=== PATIENT | female | born 1965 | race Caucasian/White ===

== ENCOUNTER 2017-02-19 09:42 | Inpatient (IN) | payer OTHER ==
[~2017-02-19] VITALS: Ht 170.2 cm; Wt 57.1 kg
--- NOTE | ~2017-02-19 | EKG ---
[address] [address] ELECTROCARDIOGRAM REPORT Name: DAREN CHRISTENSEN Room #: 447-P ADM IN M.R.#: [id number] Admission: 02/19/17 Attend Phys: Stephan Alvarado MD Discharge: Date of : 63 Report #: [id number] THIS REPORT FOR: //name// [facility] ED Test Date: 2017-02-19 Test Time: 10:13:24 Pat Name: DAREN CHRISTENSEN Department: Room: [facility] Gender: F Photovoltaic Technician: Triny WELSH : 1965 Requested By: Manohar Brown Order Number: [id number] MD: Armand Toro Measurements Intervals [place] Rate: 100 P: 81 [place]: 122 QRS: 57 QRSD: 91 T: QT: 439 QTc: 567 Interpretive Statements Sinus tachycardia Biatrial enlargement RSR' in V1 or V2, probably normal variant Borderline T wave abnormalities Electronically Signed On 02-19-2017 17:28:11 ASSISTANT PRESS OPERATOR OFFSET by Armand Toro [email or web address] <ELECTRONICALLY SIGNED> By: Armand Toro MD 02/19/17 1728 1013 1013 Armand Toro MD /DAVON
--- NOTE | ~2017-02-19 | EKG ---
[address] [address] ELECTROCARDIOGRAM REPORT Name: DAREN CHRISTENSEN Room #: 447-P ADM IN M.R.#: [id number] Admission: 02/19/17 Attend Phys: Stephan Alvarado MD Discharge: Date of : 63 Report #: [id number] THIS REPORT FOR: //name// [facility] Test Date: 2017-02-20 Test Time: 15:50:54 Pat Name: DAREN CHRISTENSEN Department: Room: 447 Gender: F Casing Mixer: allison : 1965 Requested By: Armand Toro Order Number: [id number] MD: Armand Toro Measurements Intervals [employer] Rate: 71 P: 58 [place]: 111 QRS: 56 QRSD: 109 T: QT: 494 QTc: 537 Interpretive Statements Sinus rhythm Borderline short CA interval Nonspecific T abnrm, anterolateral leads Electronically Signed On 02-20-2017 16:00:55 EXECUTIVE STAFF ASSISTANT by Armand Toro [email or web address] <ELECTRONICALLY SIGNED> By: Armand Toro MD 02/20/17 1600 155 Armand Toro MD /DAVON
--- NOTE | ~2017-02-19 | HC ---
[facility] [place] [address] CONSULTATION Name: DAREN CHRISTENSEN Room #: 447-P ADM IN M.R.#: [id number] Admission: 02/19/17 Attend Phys: Stephan Alvarado MD Discharge: Date of : 63 Report #: [id number] THIS REPORT FOR: //name// CC: Lucho Alvarado DATE OF SERVICE: 02/20/2017 CARDIOLOGY CONSULTATION REASON FOR CONSULTATION: History of congestive heart failure and shortness of breath. HISTORY OF PRESENT ILLNESS: The patient is a 52-year-old female diagnosed with lung cancer back in 2011. At that time, she underwent surgical resection. There was no evidence of metastasis. She did undergo radiation therapy as well as chemotherapy with cisplatin and another noncardiotoxic agent. 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 In December, she was staying at a hotel after returning from a recent nursing job out of town and she became apparently nonresponsive and went to [facility] where she had an abnormal EKG and was taken to the catheterization lab and her coronary arteries apparently were within normal limits and was diagnosed with a Takotsubo cardiomyopathy. Her EF was about 20% and she was in the ICU for approximately 1 week with severe low blood pressures in the 80s. This slowly improved and she was eventually discharged on no medications due to her hypotension, but did have a LifeVest placed. She has not yet seen a bulb sorter as an outpatient and follows with Dr. Taylor as her primary. She reports that she came in yesterday with increased fevers and chills, productive cough and worsening shortness of breath. She says she has multiple family members who are ill with some sort of a virus. She denies any chest pain or chest tightness. She denies PND or orthopnea. She denies presyncope or syncope. PAST MEDICAL HISTORY: As above. SOCIAL HISTORY: No longer smokes, is a nurse. FAMILY HISTORY: Noncontributory. ALLERGIES: None. MEDICATIONS: Currently on nebulizers and IV antibiotics, but nothing for her blood pressure. REVIEW OF SYSTEMS: GENERAL: The patient has been having some fevers. [facility] [address] [place] [address] CONSULTATION Name: DAREN CHRISTENSEN Room #: 447-P [facility] IN [facility].#: [id number] Admission: 02/19/17 Attend Phys: Stephan Alvarado MD Discharge: Date of : 63 Report #: [id number] HEENT: No blurred vision. CARDIOVASCULAR: As above. PULMONARY: She is having some productive cough and some increased wheezing. GASTROINTESTINAL: She denies nausea, vomiting. GENITOURINARY: She denies dysuria. MUSCULOSKELETAL: No myalgias or arthralgias. ENDOCRINE: No heat or cold intolerance. PHYSICAL EXAMINATION: VITAL SIGNS: Temperature is 36.7, pulse 60, respirations 17, blood pressure 121/66, sats are 95%. GENERAL: She is in no acute distress. HEENT: Oropharynx is clear. NECK: Supple, with no thyromegaly. HEART: Regular rate and rhythm with no murmurs, rubs or gallops. She has no elevated jugular venous pressure. LUNGS: Reveal decreased rhonchi and wheezing. ABDOMEN: Soft, nontender, nondistended with no hepatosplenomegaly. EXTREMITIES: No clubbing, cyanosis, edema. NEUROLOGIC: Cranial nerves 2-12 are intact. LABORATORY DATA: White count 10, hemoglobin 12, platelets 169. Sodium 138, potassium 3.4, BUN 14, creatinine 1. Her proBNP is completely normal at 235. Her troponin is normal. Her chest x-ray shows normal cardiac size. There is no evidence of pulmonary edema. She has a right-sided port. Her CT scan of chest was within normal limits with no PE. ASSESSMENT: 1. Takotsubo cardiomyopathy. 2. Nonischemic cardiomyopathy. 3. Pneumonia. 4. Shortness of breath secondary to pneumonia. In summary, the patient is a 52-year-old with recent diagnosis of Takotsubo cardiomyopathy, ejection fraction of 20%, currently wearing a LifeVest. I do not believe her shortness of breath is due to congestive heart failure. She appears to be clinically euvolemic. I think she likely has pneumonia, which needs to be optimized. We will obtain an echocardiogram to evaluate her left ventricular size and function. If her ejection fraction is greater than 35%, we can discuss discontinuation of the LifeVest. I can also see her as an outpatient. <ELECTRONICALLY SIGNED> By: Armand Toro MD 02/21/17 1307 1432 0257 Armand Toro MD /nt
--- NOTE | ~2017-02-19 | 2DMMODE ---
[facility] [address] [place] [address] 2 D/M-MODE ECHOCARDIOGRAM Name: DAREN CHRISTENSEN Simon Room #: 447-P [facility] IN ..#: [id number] Admission: 02/19/17 Attend Phys: Stephan Alvarado, Discharge: Date of : 63 Date of Service: 02/21/17 1310 Report #: [id number] THIS REPORT FOR: //name// APPROVED REPORT Study performed: 02/21/2017 10:38:33 EXAM: Comprehensive 2D, Doppler, and color-flow Echocardiogram Patient Location: Bedside Room #: [facility] Status: routine BSA: 1.66 BP: 144/67 mmHg Other Information Study Quality: Adequate Indications Dyspnea Hx Takotsubo cardiomyopathy, previous EF=20% 2D Dimensions RVDd: 30.67 mm LVEF(%): 68.30 (>50%) IVSd: 8.05 (7-11mm) LVOT Diam: 16.41 (18-24mm) LVDd: 45.18 mm PWd: 9.68 (7-11mm) Ascending Ao: 24.63 (22-36mm) LVDs: 28.01 (25-40mm) Aortic Root: 30.51 mm IVC: 23.00 mm Dodd's LVEF: 68.30 % Volumes Left Atrial Volume (Systole) Single Plane 4CH: 45.65 mL Single Plane 2CH: 33.51 mL LA ESV Index: 26.00 mL/m2 Aortic Valve AoV Peak Alfa.: 1.47 m/s AO Peak Gr.: 8.63 mmHg LVOT Max P.24 mmHg LVOT Max V: 1.44 m/s JHON Vmax: 2.07 cm2 Mitral Valve E/A Ratio: 1.5 MV Decel. Time: 170.50 ms [facility] [employer] [place] [address] 2 D/M-MODE ECHOCARDIOGRAM Name: DAREN CHRISTENSEN Simon Room #: 447-P [facility] IN .R.#: [id number] Admission: 02/19/17 Attend Phys: Stephan Alvarado, Discharge: Date of : 63 Date of Service: 02/21/17 1310 Report #: [id number] E Max Alfa.: 1.23 m/s MV A Alfa.: 0.84 m/s MV PHT: 49.45 ms IVRT: 55.36 ms Pulmonary Valve PV Peak Alfa.: 0.90 m/s PV Peak Gr.: 3.27 mmHg Pulmonary Vein P Vein S: 0.55 m/s P Vein A: 0.25 m/s P Vein D: 0.68 m/s P Vein A Dur.: 107.3 msec P Vein S/D Ratio: 0.81 Tricuspid Valve TR Peak Alfa.: 3.14 m/s RAP Estimate: 15.00 mmHg TR Peak Gr.: 39.45 mmHg PA Pressure: 55.00 mmHg Left Ventricle The left ventricle is normal size. There is normal LV segmental wall motion. There is normal left ventricular wall thickness. The left ventricular systolic function is normal. The left ventricular ejection fraction is within the normal range. LVEF is 55-60%. The left ventricular diastolic function is normal. Right Ventricle The right ventricle is normal size. The right ventricular systolic function is normal. Atria The left atrium size is normal. The right atrium size is normal. Aortic Valve The aortic valve is normal in structure. No aortic regurgitation is present. There is no aortic valvular stenosis. Mitral Valve The mitral valve is normal in structure. Trace mitral regurgitation. No evidence of mitral valve stenosis. Tricuspid Valve The tricuspid valve is normal in structure. Mild tricuspid regurgitation. PAP is estimated at 55 mmHg. Pulmonic Valve [address] [address] 2 D/M-MODE ECHOCARDIOGRAM Name: DAREN CHRISTENSEN Room #: 447-P [facility] IN [facility]#: [id number] Admission: 02/19/17 Attend Phys: Stephan Alvarado, Discharge: Date of : 63 Date of Service: 02/21/17 1310 Report #: [id number] The pulmonary valve is normal in structure. Trace pulmonic regurgitation. Great Vessels The aortic root is normal in size. IVC is dilated and collapses <50% with inspiration. Pericardium There is no pericardial effusion. <Conclusion> The left ventricular systolic function is normal. There is normal LV segmental wall motion. LVEF is 55-60%. The aortic valve is normal in structure. No aortic regurgitation or stenosis The mitral valve is normal in structure. Trace mitral regurgitation. Mild tricuspid regurgitation. Pulmonary artery pressure estimated at 55 mmHg. There is no pericardial effusion. <ELECTRONICALLY SIGNED> By: Homero Quintero MD, FACC 02/21/17 1310 1310 09 Homero Quintero MD, FACC /INF
[2017-02-19 09:46] VITALS: BP 119/91
[2017-02-19 10:49] LABS: ABSOLUTE NEUTROPHILS 8.5 thou/uL (1.4-8.2); BASOPHILS 0.5 % (0.0-2.0); HEMATOCRIT 36.4 % (37.0-47.0); HEMOGLOBIN 12.4 gm/dL (12.0-15.0); LYMPHOCYTES 8.8 % (24.0-44.0); MCH 31.5 pg (26.0-34.0); MCHC 34.1 g/dL (28.0-37.0); MCV 92.4 fL (80.0-100.0); MONOCYTES 11.4 % (1.0-8.0); PLATELET COUNT 169 thou/uL (150-400); POLYS 78.3 % (36.0-66.0); RBC 3.94 mil/uL (4.20-5.00); RDW 13.2 % (10.5-14.5); WBC 10.9 thou/uL (4.0-11.0)
[2017-02-19 11:00] LABS: ANION GAP 16 mmol/L (7-16); BUN 14 mg/dL (7-18); CALCIUM 9.3 mg/dL (8.5-10.1); CHLORIDE 100 mmol/L (98-107); CO2 22 mmol/L (21-32); GLUCOSE 83 mg/dL (74-106); POTASSIUM 3.4 mmol/L (3.5-5.1); SODIUM 138 mmol/L (136-145)
[2017-02-19 11:09] LABS: ALBUMIN 3.3 g/dL (3.4-5.0); SGOT 17 U/L (15-37); SGPT 14 U/L (30-65); TOTAL BILIRUBIN 0.5 mg/dL (<0.1-1.0); TOTAL PROTEIN 7.5 g/dL (6.4-8.2); TROPONIN-I < 0.04 ng/mL (<0.06)
[2017-02-19 14:22] VITALS: BP 115/87
[2017-02-19 15:50] VITALS: BP 111/69
[2017-02-19 16:05] VITALS: BP 119/78
[2017-02-19] MEDS ORDERED: XANAX 0.5 MG0.5 MG PO (16:21)
[2017-02-19 20:40] VITALS: BP 116/85
[2017-02-20 04:40] VITALS: BP 106/76
[2017-02-20 07:28] VITALS: BP 121/66
[2017-02-21 05:16] LABS: HEMATOCRIT 32.1 % (37.0-47.0); HEMOGLOBIN 10.7 gm/dL (12.0-15.0); MCH 31.3 pg (26.0-34.0); MCHC 33.4 g/dL (28.0-37.0); MCV 93.8 fL (80.0-100.0); PLATELET COUNT 166 thou/uL (150-400); RBC 3.42 mil/uL (4.20-5.00); RDW 13.7 % (10.5-14.5); WBC 10.9 thou/uL (4.0-11.0)
[2017-02-21 05:28] LABS: CALCIUM 8.4 mg/dL (8.5-10.1); CREATININE 1.1 mg/dL (0.6-1.0)
[2017-02-21 05:35] LABS: POTASSIUM 2.8 mmol/L (3.5-5.1)
[2017-02-21 05:49] VITALS: BP 137/77
[2017-02-21 06:24] LABS: ABSOLUTE NEUTROPHILS 8.7 thou/uL (1.4-8.2); METAMYELOCYTES 1 %; MYELOCYTES 1 %; NUCLEATED RBCS 1 /100WBC
[2017-02-21 06:25] LABS: LARGE PLATELETS OCCASIONAL
[2017-02-21 08:19] VITALS: BP 144/67
[2017-02-21 16:22] VITALS: BP 170/85
[2017-02-21 17:36] VITALS: BP 167/78
[2017-02-21 19:43] VITALS: BP 174/96
[2017-02-22 00:05] VITALS: BP 139/77
[2017-02-22 04:00] VITALS: BP 127/70
[2017-02-22 05:50] LABS: CALCIUM 8.9 mg/dL (8.5-10.1); CREATININE 0.8 mg/dL (0.6-1.0); MAGNESIUM 1.8 mg/dL (1.8-2.4)
[2017-02-22 08:00] VITALS: BP 145/89
[2017-02-22 16:00] VITALS: BP 149/83
[2017-02-22 21:10] VITALS: BP 111/52
[2017-02-23 04:54] VITALS: BP 128/74
[2017-02-23 08:00] VITALS: BP 167/81
[2017-02-23 16:00] VITALS: BP 126/62
[2017-02-23 20:00] VITALS: BP 143/78
[2017-02-24 04:58] VITALS: BP 123/68
[2017-02-24] MEDS ORDERED: CEFUROXIME500 MG PO (11:09)
[2017-02-24] MEDS ORDERED: ROBITUSSIN100 MG/53 PO (11:09)
[2017-02-24] MEDS ORDERED: ULTRAM 50MG TAB50 MG PO (11:41)
[2017-02-24] MEDS ORDERED: CARVEDILOL6.25 MG PO (11:43)
[2017-02-24 12:39] VITALS: BP 155/82
== END 2017-02-24 15:20 | disposition home or self-care (01) | DRG 871 ==
LOC: ER 09:42 → 4S 13:22 → EROBS 13:22 → 4S 15:39
PROVIDERS: Family Medicine; Nurse Practitioner Acute Care; Physician Assistant
DX: A41.9 Sepsis, unspecified organism (principal); J18.9 Pneumonia, unspecified organism; I51.81 Takotsubo syndrome; I95.9 Hypotension, unspecified; F41.9 Anxiety disorder, unspecified; I50.9 Heart failure, unspecified; Z85.118 Personal history of other malignant neoplasm of bronchus and lung; Z92.21 Personal history of antineoplastic chemotherapy; Z92.3 Personal history of irradiation; Z87.891 Personal history of nicotine dependence; Z79.899 Other long term (current) drug therapy; Z91.040 Latex allergy status
CPT/HCPCS: 10100

== ENCOUNTER 2017-03-02 15:27 | Inpatient (IN) | payer OTHER ==
[~2017-03-02] VITALS: Ht 170.2 cm; Wt 56.7 kg
--- NOTE | ~2017-03-02 | EKG ---
[address] [place] [address] ELECTROCARDIOGRAM REPORT Name: DAREN CHRISTENSEN Room #: [facility]#: [id number] Admission: 03/02/17 Attend Phys: Discharge: Date of : 63 Report #: [id number] THIS REPORT FOR: //name// [facility] ED Test Date: 2017-03-02 Test Time: 15:43:59 Pat Name: DAREN CHRISTENSEN Department: Room: Gender: F Forest Resource Specialist: RAMON : 1965 Requested By: Abimael Harkins Order Number: [id number] MD: Homero Quintero Measurements Intervals [place] Rate: 117 P: 83 UT: 118 QRS: 50 QRSD: 85 T: 68 QT: 308 QTc: 430 Interpretive Statements Sinus tachycardia Biatrial enlargement RSR' in V1 or V2, probably normal variant Borderline T wave abnormalities Compared to ECG 02/20/2017 15:50:54 Atrial abnormality now present RSR' in V1 or V2 now present T-wave abnormality now present Electronically Signed On 03-02-2017 17:37:10 DISTANCE LEARNING UNIT LEADER by Homero Quintero [email or web address] <ELECTRONICALLY SIGNED> By: Homero Quintero MD, FAC 03/02/17 1737 1543 1543 Homero Quintero MD, [facility] /EPI
[~2017-03-02 15:27] MED LIST: CARVEDILOL6.25 MG PO; CEFUROXIME500 MG PO; ROBITUSSIN100 MG/53 PO; ULTRAM 50MG TAB50 MG PO; XANAX 0.5 MG0.5 MG PO
[2017-03-02 15:28] VITALS: BP 130/93
[2017-03-02 16:24] LABS: CALCIUM 8.7 mg/dL (8.5-10.1); POTASSIUM 3.7 mmol/L (3.5-5.1)
[2017-03-02] MEDS ORDERED: CARVEDILOL12.5 MG PO (22:40)
[2017-03-02] MEDS ORDERED: ULTRAM 50MG TAB50 MG PO (22:40)
[2017-03-02] MEDS ORDERED: XANAX 0.5 MG0.5 MG PO (22:41)
[2017-03-03] VITALS (7 sets, daily range): BP systolic 87–104; BP diastolic 50–60
[2017-03-03 06:19] LABS: HEMATOCRIT 34.9 % (37.0-47.0); HEMOGLOBIN 11.8 gm/dL (12.0-15.0); MCH 31.1 pg (26.0-34.0); MCHC 33.8 g/dL (28.0-37.0); MCV 92.1 fL (80.0-100.0); RBC 3.79 mil/uL (4.20-5.00); WBC 5.7 thou/uL (4.0-11.0)
[2017-03-03 06:27] LABS: CALCIUM 8.5 mg/dL (8.5-10.1); POTASSIUM 3.8 mmol/L (3.5-5.1)
[2017-03-04 03:02] VITALS: BP 98/66
[2017-03-04 08:00] VITALS: BP 99/59
[2017-03-04] MEDS ORDERED: ROBITUSSIN100 MG/53 PO (09:25)
[2017-03-04 09:42] VITALS: BP 99/59
== END 2017-03-04 10:55 | disposition home or self-care (01) | DRG 194 ==
LOC: ER 15:27 → EROBS 18:42 → ER 18:42 → 4S 18:42
PROVIDERS: Emergency Medicine; Nurse Practitioner Family
DX: J18.9 Pneumonia, unspecified organism (principal); J44.1 Chronic obstructive pulmonary disease with (acute) exacerbation; I42.9 Cardiomyopathy, unspecified; J44.0 Chronic obstructive pulmonary disease with (acute) lower respiratory infection; G43.909 Migraine, unspecified, not intractable, without status migrainosus; R00.0 Tachycardia, unspecified; F41.9 Anxiety disorder, unspecified; Z85.118 Personal history of other malignant neoplasm of bronchus and lung; Z92.21 Personal history of antineoplastic chemotherapy; Z92.3 Personal history of irradiation; Z91.040 Latex allergy status; Z87.891 Personal history of nicotine dependence; Z79.899 Other long term (current) drug therapy
CPT/HCPCS: 10195

== ENCOUNTER 2017-06-28 22:17 | Emergency (ER) | payer OTHER ==
[~2017-06-28] VITALS: Ht 170.2 cm; Wt 59.0 kg
[~2017-06-28 22:17] MED LIST changes: +CARVEDILOL12.5 MG PO
[2017-06-28] MEDS ORDERED: MOBIC7.5 MG PO (23:35)
[2017-06-28] MEDS ORDERED: ULTRAM 50MG TAB50 MG PO (23:35)
== END 2017-06-28 23:45 | disposition home or self-care (01) ==
LOC: ER 22:17
DX: S93.491A Sprain of other ligament of right ankle, initial encounter (principal); F41.9 Anxiety disorder, unspecified; G43.909 Migraine, unspecified, not intractable, without status migrainosus; Z85.118 Personal history of other malignant neoplasm of bronchus and lung; Z92.21 Personal history of antineoplastic chemotherapy; Z88.2 Allergy status to sulfonamides; Z91.040 Latex allergy status; Z87.891 Personal history of nicotine dependence; X50.1XXA Overexertion from prolonged static or awkward postures, initial encounter; Y93.89 Activity, other specified; Y92.89 Other specified places as the place of occurrence of the external cause; Y99.8 Other external cause status

== ENCOUNTER 2017-08-18 21:41 | Emergency (ER) | payer OTHER ==
[~2017-08-18] VITALS: Ht 170.2 cm; Wt 61.7 kg
--- NOTE | ~2017-08-18 | EKG ---
[address] [place] [address] ELECTROCARDIOGRAM REPORT Name: DAREN CHRISTENSEN Room #: [facility]#: [id number] Admission: 08/18/17 Attend Phys: Discharge: 08/19/17 Date of : 63 Report #: [id number] THIS REPORT FOR: //name// [facility] ED Test Date: 2017-08-18 Test Time: 21:50:33 Pat Name: DAREN CHRISTENSEN Department: Room: Gender: F Behavioral Health Professional: BAILEY : 1965 Requested By: Char Conner Order Number: [id number] MD: Homero Quintero Measurements Intervals [place] Rate: 77 P: 63 LA: 142 QRS: 43 QRSD: 103 T: 59 QT: 398 QTc: 451 Interpretive Statements Sinus rhythm Right ventricular conduction delay Compared to ECG 03/02/2017 15:43:59 Sinus tachycardia no longer present T-wave abnormality no longer present Electronically Signed On 08-19-2017 8:15:06 CDT by Hmoero Quintero [email or web address] <ELECTRONICALLY SIGNED> By: Homero Quintero MD, [facility] 08/19/17 0815 49 49 Homero Quintero MD, [facility] /EPI
[~2017-08-18 21:41] MED LIST changes: +MOBIC7.5 MG PO
[2017-08-18 22:10] LABS: URINE BILIRUBIN NEGATIVE (Negative); URINE BLOOD TRACE (Negative); URINE CLARITY CLEAR; URINE COLOR YELLOW; URINE GLUCOSE-RANDOM* NEGATIVE (Negative); URINE KETONES NEGATIVE (Negative); URINE LEUKOCYTES-REFLEX NEGATIVE (Negative); URINE NITRITE-REFLEX NEGATIVE (Negative); URINE PROTEIN (DIPSTICK) NEGATIVE (Negative); URINE SPECIFIC GRAVITY 1.015 (1.005-1.035); URINE UROBILINOGEN 0.2 E.U./dl (0.2-1.0)
[2017-08-18 22:57] LABS: ABSOLUTE NEUTROPHILS 3.7 thou/uL (1.4-8.2); BASOPHILS 0.7 % (0.0-2.0); EOSINOPHILS 3.4 % (0.0-3.0); HEMATOCRIT 34.2 % (37.0-47.0); HEMOGLOBIN 11.7 gm/dL (12.0-15.0); LYMPHOCYTES 27.2 % (24.0-44.0); MCH 31.7 pg (26.0-34.0); MCHC 34.2 g/dL (28.0-37.0); MCV 92.9 fL (80.0-100.0); MONOCYTES 9.4 % (1.0-8.0); PLATELET COUNT 155 thou/uL (150-400); POLYS 59.3 % (36.0-66.0); RBC 3.68 mil/uL (4.20-5.00); RDW 13.3 % (10.5-14.5); WBC 6.3 thou/uL (4.0-11.0)
[2017-08-18 23:05] LABS: ANION GAP 11 mmol/L (7-16); BUN 15 mg/dL (7-18); CHLORIDE 103 mmol/L (98-107); CO2 24 mmol/L (21-32); CREATININE 1.2 mg/dL (0.6-1.0); GLUCOSE 94 mg/dL (74-106); POTASSIUM 3.8 mmol/L (3.5-5.1); SODIUM 138 mmol/L (136-145)
[2017-08-18 23:14] LABS: TROPONIN-I <0.06 ng/mL (<0.06)
[2017-08-18] MEDS ORDERED: ADDERALL 20 MG20 M1 PO (23:33)
[2017-08-18] MEDS ORDERED: TRAZODONE HCL50 MG PO (23:34)
[2017-08-18] MEDS ORDERED: PEPCID20 MG PO (23:34)
== END 2017-08-19 01:08 | disposition home or self-care (01) ==
LOC: ER 21:41
PROVIDERS: Emergency Medicine
DX: R53.83 Other fatigue (principal); R53.81 Other malaise; R42 Dizziness and giddiness; R30.0 Dysuria; R53.1 Weakness; M54.9 Dorsalgia, unspecified; R11.0 Nausea; R07.9 Chest pain, unspecified; R05 Cough; R34 Anuria and oliguria; M25.472 Effusion, left ankle; M25.471 Effusion, right ankle; F41.9 Anxiety disorder, unspecified; G43.909 Migraine, unspecified, not intractable, without status migrainosus; Z85.118 Personal history of other malignant neoplasm of bronchus and lung; Z90.49 Acquired absence of other specified parts of digestive tract; Z90.2 Acquired absence of lung [part of]; Z87.891 Personal history of nicotine dependence; Z91.040 Latex allergy status; Z88.2 Allergy status to sulfonamides

== ENCOUNTER 2018-12-12 22:14 | Emergency (ER) | payer OTHER ==
[~2018-12-12] VITALS: Ht 170.2 cm; Wt 59.0 kg
[~2018-12-12 22:14] MED LIST changes: +ADDERALL 20 MG20 M1 PO; +PEPCID20 MG PO; +TRAZODONE HCL50 MG PO
[2018-12-13] MEDS ORDERED: DOXYCYCLINE 10100 M1 PO (00:53)
[2018-12-13 01:07] VITALS: BP 112/52
== END 2018-12-13 01:08 | disposition home or self-care (01) ==
LOC: ER 22:14
DX: J32.9 Chronic sinusitis, unspecified (principal); R11.2 Nausea with vomiting, unspecified; G43.909 Migraine, unspecified, not intractable, without status migrainosus; F41.9 Anxiety disorder, unspecified; Z85.118 Personal history of other malignant neoplasm of bronchus and lung; Z88.2 Allergy status to sulfonamides; Z91.040 Latex allergy status; Z87.891 Personal history of nicotine dependence

== ENCOUNTER 2019-03-10 14:13 | Emergency (ER) | payer OTHER ==
[~2019-03-10] VITALS: Ht 170.2 cm; Wt 63.5 kg
[~2019-03-10 14:13] MED LIST changes: +DOXYCYCLINE 10100 M1 PO
[2019-03-10] MEDS ORDERED: ZPAK PO (14:59)
[2019-03-10] MEDS ORDERED: ALBUTEROL2.5 MG/0.1 INH (15:01)
[2019-03-10 15:06] LABS: ABSOLUTE NEUTROPHILS 3.3 thou/uL (1.4-8.2); BASOPHILS 0.5 % (0.0-2.0); HEMATOCRIT 40.8 % (37.0-47.0); HEMOGLOBIN 13.6 gm/dL (12.0-15.0); LYMPHOCYTES 18.7 % (24.0-44.0); MCH 31.7 pg (26.0-34.0); MCHC 33.3 g/dL (28.0-37.0); MCV 95.1 fL (80.0-100.0); PLATELET COUNT 149 thou/uL (150-400); POLYS 68.8 % (36.0-66.0); RBC 4.28 mil/uL (4.20-5.00); RDW 13.8 % (10.5-14.5); WBC 4.8 thou/uL (4.0-11.0)
[2019-03-10 15:15] LABS: CREATININE 0.9 mg/dL (0.6-1.0); POTASSIUM 3.6 mmol/L (3.5-5.1)
[2019-03-10 15:28] LABS: ALBUMIN 3.9 g/dL (3.4-5.0); TOTAL BILIRUBIN 0.3 mg/dL (<0.1-1.0); TOTAL PROTEIN 7.5 g/dL (6.4-8.2)
[2019-03-10] MEDS ORDERED: PREDNISONE 20 M20 M1 PO (17:53)
[2019-03-10] MEDS ORDERED: NORCO 5-325 TA1 EAC1 PO (17:53)
[2019-03-10 17:59] VITALS: BP 125/80
--- NOTE | 2019-03-11 10:26 | EKG ---
[address] [address] [facility] [address] ELECTROCARDIOGRAM REPORT Name: DAREN CHRISTENSEN Room #: [facility]#: [id number] Admission: 03/10/19 Attend Phys: Discharge: 03/10/19 Date of : 63 Report #: [id number] THIS REPORT FOR: //name// [facility] ED Test Date: 2019-03-10 Test Time: 17:25:22 Pat Name: DAREN CHRISTENSEN Department: Room: Gender: F Video Manager: [email or web address] : 1965 Requested By: Maurice Velasquez Order Number: [id number] MD: Francis Walker Measurements Intervals [place] Rate: 88 P: 73 [place]: 133 QRS: 57 QRSD: 104 T: 70 QT: 352 QTc: 426 Interpretive Statements Sinus rhythm Probable left atrial enlargement RSR' in V1 or V2, probably normal variant Compared to ECG 08/18/2017 21:50:33 RSR' in V1 or V2 now present Electronically Signed On 03-11-2019 10:25:49 AMMUNITION OFFICER by Francis Walker [email or web address] <ELECTRONICALLY SIGNED> By: Francis Walker MD 03/11/19 1025 1725 24 Francis Walker MD /DAVON
== END 2019-03-10 18:07 | disposition home or self-care (01) ==
LOC: ER 14:13
PROVIDERS: Emergency Medicine
DX: R05 Cough (principal); G43.909 Migraine, unspecified, not intractable, without status migrainosus; F41.9 Anxiety disorder, unspecified; Z85.118 Personal history of other malignant neoplasm of bronchus and lung; Z88.2 Allergy status to sulfonamides; Z91.040 Latex allergy status; Z87.891 Personal history of nicotine dependence

== ENCOUNTER 2019-08-05 18:12 | Emergency (ER) | payer OTHER ==
[~2019-08-05] VITALS: Ht 170.2 cm; Wt 68.0 kg
[~2019-08-05 18:12] MED LIST changes: +ALBUTEROL2.5 MG/0.1 INH; +NORCO 5-325 TA1 EAC1 PO; +PREDNISONE 20 M20 M1 PO; +ZPAK PO
[2019-08-05 19:41] LABS: ABSOLUTE NEUTROPHILS 4.3 thou/uL (1.4-8.2); EOSINOPHILS 1.4 % (0.0-3.0); HEMATOCRIT 42.4 % (37.0-47.0); HEMOGLOBIN 14.6 gm/dL (12.0-15.0); LYMPHOCYTES 37.3 % (24.0-44.0); MCH 31.8 pg (26.0-34.0); MCHC 34.5 g/dL (28.0-37.0); MCV 92.3 fL (80.0-100.0); MONOCYTES 10.9 % (1.0-8.0); PLATELET COUNT 199 thou/uL (150-400); POLYS 49.4 % (36.0-66.0); RBC 4.59 mil/uL (4.20-5.00); RDW 13.4 % (10.5-14.5); WBC 8.7 thou/uL (4.0-11.0)
[2019-08-05 19:45] LABS: URINE BILIRUBIN NEGATIVE (Negative); URINE BLOOD NEGATIVE (Negative); URINE CLARITY CLEAR; URINE COLOR YELLOW; URINE GLUCOSE-RANDOM* NEGATIVE (Negative); URINE KETONES NEGATIVE (Negative); URINE LEUKOCYTES-REFLEX NEGATIVE (Negative); URINE NITRITE-REFLEX NEGATIVE (Negative); URINE PROTEIN (DIPSTICK) NEGATIVE (Negative); URINE UROBILINOGEN 0.2 E.U./dl (0.2-1.0)
[2019-08-05 19:54] LABS: ANION GAP 15 mmol/L (7-16); BUN 18 mg/dL (7-18); CALCIUM 8.9 mg/dL (8.5-10.1); CHLORIDE 103 mmol/L (98-107); CO2 20 mmol/L (21-32); CREATININE 1.1 mg/dL (0.6-1.0); GLUCOSE 99 mg/dL (74-106); POTASSIUM 3.8 mmol/L (3.5-5.1); SODIUM 138 mmol/L (136-145)
[2019-08-05 20:04] LABS: ALBUMIN 3.8 g/dL (3.4-5.0); SGOT 43 U/L (15-37); SGPT 52 U/L (30-65); TOTAL BILIRUBIN 0.3 mg/dL (0.2-1.0); TOTAL PROTEIN 7.5 g/dL (6.4-8.2); TROPONIN-I <0.06 ng/mL (<0.06)
[2019-08-05] MEDS ORDERED: NAPROSYN500 MG PO (21:30)
[2019-08-05] MEDS ORDERED: VENTOLIN HFA 1818 GM INH (21:30)
[2019-08-05] MEDS ORDERED: NORCO 5-325 TA1 EAC1 PO (21:30)
[2019-08-05 21:53] VITALS: BP 106/68
--- NOTE | 2019-08-06 07:28 | EKG ---
[facility] [place] [address] [place] [address] ELECTROCARDIOGRAM REPORT Name: DAREN CHRISTENSEN Room #: [facility]#: [id number] Admission: 08/05/19 Attend Phys: Discharge: 08/05/19 Date of : 63 Report #: [id number] THIS REPORT FOR: cc: Lucho Taylor James A. DO Lundgren, Craig H. MD [facility] THIS REPORT FOR: //name// [facility] ED Test Date: 2019-08-05 Test Time: 18:45:56 Pat Name: DAREN CHRISTENSEN Department: Room: Gender: F Telegraph Messenger: zoltan : 1965 Requested By: Charlene Helm Order Number: [id number] MD: Homero Quintero Measurements Intervals [place] Rate: 111 P: 68 [place]: 131 QRS: 39 QRSD: 91 T: 56 QT: 328 QTc: 446 Interpretive Statements Sinus tachycardia Otherwise normal tracing Compared to ECG 03/10/2019 17:25:22 Heart rate has increased Electronically Signed On 08-06-2019 7:27:33 CDT by Homero Quintero [email or web address] <ELECTRONICALLY SIGNED> By: Homero Quintero MD, [facility] 08/06/19 0727 1845 1845 Homero Quintero MD, [facility] /EPI
== END 2019-08-05 21:56 | disposition home or self-care (01) ==
LOC: ER 18:12
PROVIDERS: Physician Assistant
DX: B34.9 Viral infection, unspecified (principal); Z20.828 Contact with and (suspected) exposure to other viral communicable diseases; R06.00 Dyspnea, unspecified; G43.909 Migraine, unspecified, not intractable, without status migrainosus; F41.9 Anxiety disorder, unspecified; Z85.118 Personal history of other malignant neoplasm of bronchus and lung; Z90.89 Acquired absence of other organs; Z95.810 Presence of automatic (implantable) cardiac defibrillator; Z79.899 Other long term (current) drug therapy; Z91.040 Latex allergy status; Z88.2 Allergy status to sulfonamides; Z87.891 Personal history of nicotine dependence